=== PATIENT | male | born 1985 | race Caucasian/White ===

== ENCOUNTER 2018-04-28 16:29 | Emergency (ER) | payer OTHER ==
[~2018-04-28] VITALS: Ht 185.4 cm; Wt 131.1 kg
[2018-04-28 16:44] VITALS: BP 159/99
--- NOTE | 2018-04-28 17:08 | PHYS DOC ---
Past History Past Medical History: High Cholesterol, Hypertension Past Surgical History: No Surgical History Alcohol Use: Heavy Drug Use: Marijuana Adult General Chief Complaint Chief Complaint: HEADACHE HPI HPI Patient is a 33-year-old male who presents with report of head injury that he sustained when he fell when he went outside at home. Patient states that he did have loss of consciousness but has no idea how long he was out for. He complains of a headache right now that he rates at a 3 out of 10. He denies any nausea or vomiting. He also denies any neck pain. He states he had no other injuries. Injury occurred approximately 45 minutes prior to his arrival. Review of Systems Review of Systems Constitutional: Denies fever or chills [] Eyes: Denies change in visual acuity, redness, or eye pain [] Respiratory: Denies cough or shortness of breath [] Cardiovascular: No additional information not addressed in HPI [] GI: Denies nausea or vomiting [] Musculoskeletal: Denies back pain or joint pain [] Integument: Positive abrasion posterior scalp [] Neurologic: Complains of mild headache without focal weakness or sensory changes [] All other systems were reviewed and found to be within normal limits, except as documented in this note. Allergies Allergies Allergies Coded Allergies Type Severity Reaction Last Updated Verified No Known Drug Allergies 04/28/18 No Physical Exam Physical Exam Constitutional: Well developed, well nourished, no acute distress, non-toxic appearance. [] HENT: Normocephalic, with a small hematoma noted to the left parieto-occipital region and overlying abrasion, bilateral external ears normal, oropharynx moist , no oral exudates, nose normal. [] Eyes: PERRLA, EOMI, conjunctiva normal, no discharge. [] Neck: Normal range of motion, no tenderness, supple, no stridor. [] Cardiovascular: Regular rate and rhythm [] Lungs & Thorax: Bilateral breath sounds clear to auscultation [] Abdomen: Bowel sounds normal, soft. [] Skin: Warm, dry. [] Extremities: No tenderness, no cyanosis, no clubbing, ROM intact, no edema. [] Neurologic: Alert and oriented X 3, no focal deficits noted. [] Current Patient Data Vital Signs Vital Signs Date Time Temp Pulse Resp B/P (MAP) Pulse Ox O2 Delivery O2 Flow Rate FiO2 04/28/18 16:44 98.1 99 18 96 Room Air EKG EKG [] Radiology/Procedures Radiology/Procedures [] Impressions: PROCEDURE: CT HEAD AND CERVICAL SPINE WO CT of head without contrast, 6 CT C-spine without contrast. HISTORY: Syncopal episode, fell and hit head CT brain CT scan of brain was done without contrast. A skull fracture is not identified. There is slight mucosal thickening in the ethmoid sinuses and a mucous retention cyst in the left maxillary sinus. Remaining sinuses are clear. There is no intracranial hemorrhage or subdural hematoma. An acute CVA is not identified. Ventricles are normal in size. There is no mass or shift of the midline. IMPRESSION: 1. No intracranial hemorrhage or acute finding noted. End impression CT cervical spine axial CT images were obtained to the cervical spine. Sagittal and coronal reconstructed images were reviewed. A fracture is not identified. A focal disc protrusion is not identified. Thyroid is homogeneous. There is mild spurring at C5-6 and C6-7. Foraminal stenosis is not evident. IMPRESSION: 1. No acute fracture noted in the cervical spine. Electronically signed by: Keaton Black MD (04/28/2018 5:05 PM) [facility] Course & Med Decision Making Course & Med Decision Making Pertinent Labs and Imaging studies reviewed. (See chart for details) [] Dragon Disclaimer Dragon Disclaimer This electronic medical record was generated, in whole or in part, using a voice recognition dictation system. Departure Departure: Impression: Primary Impression: Closed head injury Additional Impression: Bronchitis Disposition: 01 HOME, SELF-CARE Condition: STABLE Referrals: ANTON PELLETIER MD (PCP) Patient Instructions: Acute Bronchitis, Head Injury, Adult Scripts Guaifenesin/Codeine Phosphate (CHERATUSSIN AC SYRUP) 118 Ml Liquid 10 ML PO PRN Q6HRS PRN for COUGH, #120 ML Prov: JOSE SPAIN Jr. DO 04/28/18 Azithromycin (ZITHROMAX) 250 Mg Tablet 1 PKG PO UD for infection, #6 TAB Prov: JOSE SPAIN Jr. DO 04/28/18 Problem Qualifiers Primary Impression: Closed head injury Encounter type: initial encounter Qualified Codes: S09.90XA - Unspecified injury of head, initial encounter JOSE SPAIN Jr. DO Apr 28, 2018 17:08
[2018-04-28] MEDS ORDERED: AZIT250T PO (17:50)
[2018-04-28] MEDS ORDERED: GUAI118L20 PO (17:50)
[2018-04-28] MEDS: AZITHROMYCIN 250 MG TABLET. PO ONE (17:57)
[2018-04-28] MEDS: guaiFENesin/CODEINE 100mg/10mg 5 ML LIQUID PO STA (17:58)
== END 2018-04-28 18:01 | disposition home or self-care (01) ==
LOC: ER 16:29
DX: S06.9X9A Unspecified intracranial injury with loss of consciousness of unspecified duration, initial encounter (principal); S00.03XA Contusion of scalp, initial encounter; J40 Bronchitis, not specified as acute or chronic; R55 Syncope and collapse; E78.00 Pure hypercholesterolemia, unspecified; I10 Essential (primary) hypertension; F10.20 Alcohol dependence, uncomplicated; Y90.9 Presence of alcohol in blood, level not specified; W18.09XA Striking against other object with subsequent fall, initial encounter; Y93.89 Activity, other specified; Y92.89 Other specified places as the place of occurrence of the external cause; Y99.8 Other external cause status
CPT/HCPCS: 70450; 72125; 99284; J0456